=== PATIENT | male | born 1965 | race Caucasian/White ===

== ENCOUNTER → 2019-10-20 | Outpatient (CLI) | payer BC ==
--- NOTE | 2019-10-20 11:27 | MR ---
EXAMINATION TYPE: MR brain wo con DATE OF EXAM: 10/20/2019 COMPARISON: NONE HISTORY: 54-year-old male Migraine TECHNIQUE: Multiplanar, multisequence images of the brain and brainstem were acquired without IV con trast. Diffusion weighted imaging is performed. FINDINGS: No evidence for acute infarction, hemorrhage, mass, mass effect, midline shift, herniation, effacemen t of basal cisterns, or extra-axial fluid collection. The ventricles and sulci are age-appropriate. Major intracranial flow voids are intact. T2/FLAIR weighted sequences show some developmental variation, incidental hippocampal cavities on bot h sides. Midline structures demonstrate normal morphology. The craniocervical junction is normal. Mild mucosal thickening ethmoid air cells and right frontal sinus. Left frontal sinus hypoplastic. Th e globes are intact. Leftward nasal septal deviation. IMPRESSION: No acute intracranial abnormality seen. Incidental finding of hippocampal cavities, developmental ofelia iation.
--- NOTE | 2019-10-20 12:10 | MR ---
EXAMINATION TYPE: MR angio head wo con DATE OF EXAM: 10/20/2019 COMPARISON: Brain MR same date HISTORY: Migraine TECHNIQUE: Time of flight images focusing on the [place] were performed without contrast. 3- dimensional reconstructions performed on an alternate workstation FINDINGS: Anterior posterior circulation are patent. There is no evident aneurysm, embolus, or dissec tion. IMPRESSION: Unremarkable [place] MRA.
== END | disposition home or self-care (01) ==
LOC: RADMRIMAIN 09:23
PROVIDERS: ATTEND Family Medicine
DX: G43.909 Migraine, unspecified, not intractable, without status migrainosus (principal)
CPT/HCPCS: 70544; 70551

== ENCOUNTER → 2020-04-06 | Outpatient (CLI) | payer BC ==
--- NOTE | 2020-04-06 09:02 | CT ---
EXAMINATION TYPE: CT sinus wo con DATE OF EXAM: 04/06/2020 COMPARISON: MRI brain October 20, 2019 HISTORY: Chronic sinusitis per order. Headache per patient. CT DLP: 630.7 mGycm. Automated Exposure Control for Dose Reduction was Utilized. TECHNIQUE: CT scan of the sinuses is performed without contrast, axial images are obtained, coronal r eformatted images are also reviewed. FINDINGS: Minimal mucosal thickening in the right frontal sinus on coronal images. There is hypoplast ic left frontal sinus. Remainder of the bilateral ethmoid, sphenoid, and maxillary sinuses show no wolff spicious opacification or air-fluid levels. The ostiomeatal complex is patent bilaterally on coronal image 24. There is mild to moderate mucosal thickening towards the maxillary antrum. Visualized portion of mastoid air cells show no abnormal opacification. The globes are intact bilate rally. IMPRESSION: No acute sinusitis currently. Minimal inferior right frontal chronic sinus disease. The o stiomeatal complex is patent bilaterally.
--- NOTE | 2020-04-06 09:27 | CT ---
EXAMINATION TYPE: CT soft tissue neck w con DATE OF EXAM: 04/06/2020 HISTORY: "frog in throat" or globus sensation. Right-sided neck mass performed. COMPARISON: NONE CT DLP: 543.7 mGycm. Automated Exposure Control for Dose Reduction was Utilized. TECHNIQUE: CT scan of the neck is performed with IV Contrast, patient injected with 100 mL of Isovue 300, axial images are obtained, coronal and sagittal reformatted images are reviewed. FINDINGS: Airway: No gross abnormality seen. Parotid/submandibular glands: No gross abnormality seen. Carotid/Vascular Structures: [id number]-sq-[id number] calcified plaque bilateral carotid bulb level without s ignificant stenosis. Osseous Structures: There are large anterior spurs from inferior C3 level through the C6-C7 disc spac e . Other: No suspicious greater than 1 cm neck adenopathy. IMPRESSION: No concerning mass or adenopathy. Prominent anterior spurring in the cervical spine is n oted
== END | disposition home or self-care (01) ==
LOC: RADCTMAIN 06:45
PROVIDERS: ATTEND Otolaryngology
DX: J32.9 Chronic sinusitis, unspecified (principal); R22.1 Localized swelling, mass and lump, neck; R44.8 Other symptoms and signs involving general sensations and perceptions
CPT/HCPCS: 70491; 70486; Q9967

== ENCOUNTER 2020-12-07 07:17 | Day surgery (SDC) | payer BC ==
[2020-12-05 11:25] VITALS: BMI 28.5
[2020-12-07] MEDS ORDERED: LACTATED RINGERS 1,000 ML IV ONE (07:57)
[2020-12-07 08:02] VITALS: TEMP 96.9
[2020-12-07] MEDS ORDERED: PROPOFOL 10 MG/ML 20 ML VIAL IV ONE (08:22)
--- NOTE | 2020-12-07 08:48 | P.PCN ---
Date of Procedure: 12/07/20 Description of Procedure: BRIEF HISTORY: Patient is a 55-year-old male presenting for outpatient colonoscopy for screening for neoplasm of the colon. No prior colonoscopies. No family history of colon cancer. He does intermittently see some bright red blood per rectum. He denies any abdominal pain. PROCEDURE PERFORMED: Colonoscopy. PREOPERATIVE DIAGNOSIS: Screening for malignant neoplasm of the colon, no prior colonoscopy. ESTIMATED BLOOD LOSS: Minimal. IV sedation per Anesthesia. PROCEDURE: After informed consent was obtained, the patient, was brought into the endoscopy unit. IV sedation was administered by Anesthesia under continuous monitoring. Digital rectal examination was normal. Initially the Olympus CF-190 flexible video colonoscope was then inserted in the rectum, gradually advanced into the cecum without any difficulty. Careful examination was performed as the scope was gradually being withdrawn. Ileocecal valve and the appendiceal orifice were visualized and appeared normal. Prep was excellent. Mucosa of the cecum, ascending colon, transverse colon, descending colon, sigmoid colon, and rectum appeared normal, the terminal ileum was intubated and appeared normal. Both small and large mouth diverticula were noted throughout the colon. Retroflexion was performed in the rectum and no lesions were seen, low-grade internal. The patient tolerated the procedure well. IMPRESSION: Moderate pandiverticulosis. Internal hemorrhoids. Otherwise normal-appearing colon from rectum to cecum and normal appearing terminal ileum. RECOMMENDATIONS: Findings of this examination were discussed with the patient and his family. Okay to resume diet. Okay to resume medications. Recommend fiber supplementation. Otherwise, recommendation is for repeat colonoscopy in 10 years or sooner if any signs or symptoms which warrant further evaluation ayon
[2020-12-07 09:09] VITALS: BP 157/82; PULSE 57; RESP 16
== END 2020-12-07 09:45 | disposition home or self-care (01) ==
LOC: ORWHC2ENDO 07:17
PROVIDERS: ATTEND Internal Medicine
DX: Z12.11 Encounter for screening for malignant neoplasm of colon (principal); K57.30 Diverticulosis of large intestine without perforation or abscess without bleeding; K64.8 Other hemorrhoids; I10 Essential (primary) hypertension; E78.5 Hyperlipidemia, unspecified; Z79.899 Other long term (current) drug therapy; Z91.011 Allergy to milk products; Z91.018 Allergy to other foods
CPT/HCPCS: J2704; G0121

== ENCOUNTER → 2022-10-16 | Outpatient (CLI) | payer BC ==
--- NOTE | 2022-10-16 12:57 | CT ---
EXAMINATION TYPE: CT abdomen w con DATE OF EXAM: 10/16/2022 COMPARISON: abdominal pain HISTORY: right sided abdominal pain CT DLP: 986.5 mGycm Automated exposure control for dose reduction was used. TECHNIQUE: Helical acquisition of images was performed from the lung bases through the top of iliac crest to include entire abdomen. CONTRAST: Performed with Oral Contrast and with IV Contrast, patient injected with 70cc mL of Isovue 300. FINDINGS: LUNG BASES: No significant abnormality is appreciated. LIVER/GB: No significant abnormality is appreciated. PANCREAS: No significant abnormality is seen. SPLEEN: No significant abnormality is seen. ADRENALS: No significant abnormality is seen. KIDNEYS: No significant abnormality is seen. BOWEL: Visualized bowel gas pattern nonspecific with changes of diverticulosis. Stomach is nondisten ded and there is a small hiatal hernia. LYMPH NODES: No significant abnormality is seen. OSSEOUS STRUCTURES: No significant abnormality is seen. FREE AIR: No free air is visualized. OTHER: Aorta of normal caliber. IMPRESSION: 1. SMALL HIATAL HERNIA WITH WALL THICKENING OF THE DISTAL ESOPHAGUS CORRELATE FOR MILD ESOPHAGITIS. I NCOMPLETE DISTENTION OF THE STOMACH MAY ACCOUNT FOR THE MILD WALL THICKENING NEAR THE GE JUNCTION COR RELATE WITH EGD CLINICALLY WARRANTED.
== END | disposition home or self-care (01) ==
LOC: RADCTMAIN 11:46
PROVIDERS: ATTEND Physician Assistant
DX: K44.9 Diaphragmatic hernia without obstruction or gangrene (principal); K22.89 Other specified disease of esophagus
CPT/HCPCS: 74160; Q9967

== ENCOUNTER 2023-01-10 14:42 | Day surgery (SDC) | payer BC ==
[~2023-01-10 14:42] MED LIST: LACTATED RINGERS 1,000 ML IV SCH
[2023-01-10] MEDS ORDERED: LACTATED RINGERS 1,000 ML IV ONE (14:56)
[2023-01-10 15:02] VITALS: TEMP 97.8
[2023-01-10] MEDS ORDERED: LIDOCAINE 2% INJ 20 MG/ML (2 ML VIAL) ONE (16:25)
[2023-01-10] MEDS ORDERED: PROPOFOL 10 MG/ML 20 ML VIAL IV ONE (16:25)
--- NOTE | 2023-01-10 16:38 | P.PCN ---
Date of Procedure: 01/10/23 Procedure(s) Performed: BRIEF HISTORY: Patient is a 57-year-old, pleasant, white female scheduled for an upper endoscopy as a part of evaluation of history of GERD. He is on Nexium 20 mg daily with good control of his symptoms. He scheduled for an upper endoscopy to rule out complicated reflux disease. PROCEDURE PERFORMED: Esophagogastroduodenoscopy. PREOPERATIVE DIAGNOSIS: Long-standing history of GERD. IV sedation per anesthesia. PROCEDURE: After informed consent was obtained, the patient was brought into the endoscopy unit. IV sedation was administered by Anesthesia under continuous monitoring. Initially the Olympus GIF-140 video endoscope was inserted into the mouth. Esophagus intubated without any difficulty. It was gradually advanced into the stomach and duodenum and carefully examined. The bulb and the second part of the duodenum appeared normal. The scope at this time was withdrawn to the stomach, adequately insufflated with air, and upon careful examination, mucosa of the antrum, body, cardia and the fundus appeared normal. The scope was then withdrawn into the esophagus. The GE junction was located at 45 cm from the incisors. The esophagus appeared normal. There were no erosions or ulcerations seen and the patient tolerated the procedure well. IMPRESSION: 1. Normal-appearing esophagus with no evidence of esophagitis or Bob's esophagus. 2. Normal-appearing stomach and duodenum. RECOMMENDATIONS: The findings of this examination were discussed with the negrita ent as well as his family. He was advised to continue with Nexium 20 mg daily and follow antireflux measures..
[2023-01-10 16:57] VITALS: BP 156/72; PULSE 68; RESP 18
== END 2023-01-10 17:13 | disposition home or self-care (01) ==
LOC: ORWHC2ENDO 14:42
PROVIDERS: ATTEND Internal Medicine Gastroenterology
DX: K21.9 Gastro-esophageal reflux disease without esophagitis (principal); I10 Essential (primary) hypertension; E78.5 Hyperlipidemia, unspecified; Z98.890 Other specified postprocedural states; Z79.899 Other long term (current) drug therapy
CPT/HCPCS: 43235; J2704; J2001